=== PATIENT | female | born 1980 | race Caucasian/White ===

== ENCOUNTER 2022-06-16 07:39 | Outpatient (CLI) | payer OTHER | END 2022-06-16 07:40 | disposition home or self-care (01) | LOC: TBSIIMAG 07:39 | PROVIDERS: ATTEND Nurse Practitioner Family | DX: M54.16 Radiculopathy, lumbar region (principal) | CPT/HCPCS: 72148 ==

== ENCOUNTER 2023-03-23 19:33 | Emergency (ER) | payer OTHER ==
[2023-03-23] MEDS ORDERED: Dexamethasone 10 MG/ML VIAL ONE (21:25)
[2023-03-23 23:49] LABS: SARS-CoV-2 NAA Rapid Test Not Detected (NotDetected)
== END 2023-03-23 22:30 | disposition home or self-care (01) ==
LOC: ERS 19:33
DX: B34.9 Viral infection, unspecified (principal); I10 Essential (primary) hypertension; Z86.16 Personal history of COVID-19
CPT/HCPCS: 71045; 93005; J1100

== ENCOUNTER 2023-12-20 12:14 | Outpatient (CLI) | payer BC, OTHER | END 2023-12-20 12:15 | disposition home or self-care (01) | LOC: BICMAMMO 12:14 | PROVIDERS: ATTEND Family Medicine | DX: Z12.31 Encounter for screening mammogram for malignant neoplasm of breast (principal); Z80.3 Family history of malignant neoplasm of breast | CPT/HCPCS: 77063; 77067 ==